=== PATIENT | male | born 1945 | race Hispanic/Latino ===

== ENCOUNTER → 2023-06-30 | Outpatient (CLI) | payer OTHER | END | disposition home or self-care (01) | LOC: RAH 08:37 | PROVIDERS: ATTEND Student in an Organized Health Care Education/Training Program | DX: R07.89 Other chest pain (principal) | CPT/HCPCS: 75574 ==

== ENCOUNTER 2024-06-05 05:53 | Observation (INO) | payer OTHER ==
[~2024-06-05] VITALS: Ht 162.6 cm; Wt 79.0 kg
[~2024-06-05 05:53] MED LIST: AEC81 PO; AMIO200T44 PO; CEPH500B PO; CLOP-31 PO; FURO20TA6 PO; LISI2.5T13 PO; METO25 PO; SIMV-46 PO
--- NOTE | 2024-06-05 06:07 | EKG ---
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
--- NOTE | 2024-06-05 06:19 | ERN ---
ED Note History of Present Illness Stated Complaint: C/O CP Chief Complaint: Chest Pain Time Seen by MD: 06:07 Dictation: This is a 79-year-old male who presents to the emergency room with complaints of chest pain that started around 3:00 a.m.. Patient stated that he was in his usual state when he went to bed but woke up and felt the pain mostly in the precordial area. The son also reports that he was diaphoretic and did not feel well. No nausea vomitings no heartburn or indigestion. No syncopal episode Temperature 97.1 pulse 66 respirations 20 blood pressure 201/103 pulse oximetry 98% on room air His chronic medical problems include hypertension hypercholesterolemia coronary artery disease status post coronary artery bypass surgery on 09/14/2023, transient AFib postoperatively Allergies: Coded Allergies: No Known Drug Allergies (Unverified Allergy, Unknown, 09/09/23) Home Meds Active Scripts Cephalexin Monohydrate (Keflex) 500 Mg Cap, 1 CAP PO TID for 10 Days, #30 CAP 0 Refills Prov:JESSA AUGUSTINE MD 02/06/24 Metoprolol Tartrate (Lopressor) 25 Mg Tab, 25 MG PO BID for 30 Days, #30 TAB Prov:OLIVIER GUIDRY 09/19/23 Furosemide (Lasix 20Mg Tab) 20 Mg Tablet, 20 MG PO Q12H for 15 Days, #15 TAB Prov:OLIVIER GUIDRY 09/19/23 Clopidogrel Bisulfate (Plavix) 75 Mg Tablet, 75 MG PO DAILY for 30 Days, #30 TAB Prov:OLIVIER GUIDRY 09/19/23 Amiodarone HCl (Pacerone) 200 Mg Tablet, 200 MG PO DAILY, #30 30 Prov:OLIVIER GUIDRY 09/19/23 Reported Medications Aspirin (ASPIRIN 81 MG ECTAB) 81 Mg Ectab, 81 MG PO DAILY, TAB.EC 09/09/23 Simvastatin (Simvastatin) 40 Mg Tablet, 40 MG PO DAILY, TAB 09/09/23 Lisinopril (Lisinopril) 2.5 Mg Tablet, 2.5 MG PO DAILY, TAB 09/09/23 Past Medical History Past Medical History: Heart Disease, Hypertension Additional Past Medical Hx: HX OF TRIPLE BYPASS ( 08/2023) Surgical History: Other Surgical History Other: HX OF TRIPLE BYPASS ( 08/2023) Family History: Negative RN Note Reviewed/Agreed w/PFSH: Yes Review of System Dictation Constitutional: Negative for fever,chills, and weight loss Eyes: Negative for injury, pain,redness, and discharge ENT: Negative for injury,pain or swelling Cardiovascular: Positive for chest pain, palpitations, and edema Respiratory: Negative for shortness of breath, cough, and wheezing, Abdomen/GI: Negative for abdominal pain, nausea, vomiting, diarrhea, and constipation Back: Negative for injury and pain : Negative for injury, bleeding and discharge MS/Extremity: Negative for injury and deformity Skin: Negative for rash, and discoloration Neuro: Negative for headache, weakness, numbness, tingling, and seizure Psych: Negative for suicide ideation, homicidal ideation, and hallucinations Initial Vital Sign VS Vital Signs Date Time Temp Pulse Resp B/P (MAP) Pulse Ox O2 Delivery O2 Flow Rate FiO2 06/05/24 05:59 97.2 66 20 201/103 97 Room Air 06/05/24 06:07 0 21 Physical Exam Dictation General: awake, alert, NAD Head/Face: Normocephalic, atraumatic Eyes: PERRL, EOMI, vision at baseline ENT: oral cavity clear, TMs clear, no signs of infection Neck: Trachea midline, supple, no nuchal rigidity Cardiovascular: RRR, normal S1/S2, No MRGs, no JVD Respiratory: CTAB, no respiratory distress, No rales or wheezes Abdomen: Soft, non-tender, non-distended, normal bowel sounds, no guarding or rebound. Skin: Warm, dry, normal turgor, no rash MS/Extremity: Pulses equal, no cyanosis, neurovascular intact, FROM Neuro: COAx4, GCS 15, strength 5/5, CN 2-12 intact, normal cerebellar exam, normal gait, Psych: Normal behavior, mood, and affect normal Extremities-trace edema without any palpable cords, Homans sign is negative Results (Laboratory/Radiology) Laboratory/Radiology Laboratory Tests Test 06/05/24 04:53 06/05/24 06:08 06/05/24 06:45 White Blood Count 9.1 K/uL (4.8-10.8) Red Blood Count 4.33 MIL/uL (4.50-6.20) L Hemoglobin 14.1 g/dL (14.0-18.0) Hematocrit 41.3 % (42-54) L Mean Corpuscular Volume 95.4 fL (79-99) Mean Corpuscular Hemoglobin 32.6 pg (27.0-33.0) Mean Corpuscular Hemoglobin Concent 34.1 g/dL (32.0-36.0) Red Cell Distribution Width 12.7 % (11.0-15.5) Platelet Count 197 K/uL (130-400) Mean Platelet Volume 10.5 fL (7.5-10.5) Immature Granulocyte % (Auto) 0.3 % (0-1) Neutrophils (%) (Auto) 73.4 % (40.0-77.0) Lymphocytes (%) (Auto) 19.3 % (21.0-51.0) L Monocytes (%) (Auto) 5.9 % (3.0-13.0) Eosinophils (%) (Auto) 0.9 % (0.0-8.0) Basophils (%) (Auto) 0.2 % (0.0-5.0) Neutrophils # (Auto) 6.7 K/uL (1.8-7.7) Lymphocytes # (Auto) 1.8 K/uL (1.0-4.8) Monocytes # (Auto) 0.5 K/uL (0.1-1.0) Eosinophils # (Auto) 0.08 K/uL (0.00-0.70) Basophils # (Auto) 0.02 K/uL (0.00-0.20) Absolute Immature Granulocyte (auto 0.03 K/uL (0-1) Nucleated Red Blood Cells 0.0 % (0.0-0.19) B-Type Natriuretic Peptide 82 pg/mL (0-100) Sodium Level 144 mmol/L (136-145) Potassium Level 4.3 mmol/L (3.5-5.1) Chloride Level 107 mmol/L (101-111) Carbon Dioxide Level 27 mmol/L (21-32) Blood Urea Nitrogen 21 mg/dL (7-18) H Creatinine 1.3 mg/dL (0.5-1.3) Glomerular Filtration Rate Calc 56 mL/min (>90) Random Glucose 138 mg/dL (70-105) H Total Calcium 8.8 mg/dL (8.5-10.1) Total Creatine Kinase 230 U/L (21-232) Troponin I < 0.05 ng/mL (0.00-0.05) Labs Reviewed?: Yes EKG Comment: Twelve lead EKG done on 06/05/2024 at 5:55 a.m. showed a heart rate of 70, PA interval 189, QRS 86, QT/QTC 400/431 Impression normal sinus rhythm with nonspecific ST-T changes in the lateral leads. Interpreted by ER MD Dr. Rodrigues Ultrasound Comment: Echocardiogram Conclusion Mild concentric left ventricular hypertrophy. No regional wall motion abnormalities noted. Left ventricle systolic function is normal, 55-60%. Stage I diastolic dysfunction. Trace aortic regurgitation. Trace mitral regurgitation. Trace tricuspid regurgitation. RVSP is 16 mmHg. No pericardial effusion. DICTATED BY: BIBI DEMPSEY MD DATE: 09/13/23 1501 ELECTRONICALLY SIGNED BY: BIBI DEMPSEY MD DATE: 09/13/23 2303 ED Course ED Course Orders Procedure Category Date Status Time Vital Signs Per CPOE 06/05/24 Transmitted Routine 05:55 B-Type Natriuretic LAB 06/05/24 Complete Peptide 05:55 Chest 1vw RAD 06/05/24 Taken 05:55 12 Lead Ekg Tracing- EKG 06/05/24 Complete Technical 05:55 Oxygen By Nc/Pulse Ox CPOE 06/05/24 Transmitted 05:55 Maintain Iv CPOE 06/05/24 Transmitted 05:55 Iv Insertion CPOE 06/05/24 Transmitted 05:55 Cardiac Monitoring CPOE 06/05/24 Transmitted 05:55 Pulse Oximetry With CPOE 06/05/24 Transmitted Vs And Prn 05:55 Cbc With Differential LAB 06/05/24 Complete 05:55 Activity: Br W/Brp CPOE 06/05/24 Transmitted With Assist 05:55 Creatine Kinase, Total LAB 06/05/24 Complete 05:55 Urinalysis Profile LAB 06/05/24 Logged 05:55 Troponin Poc Order LAB 06/05/24 Logged Only 05:55 Bedside Troponin-I LAB.ER 06/05/24 In Process (Poc) 05:55 Basic Metabolic Panel LAB 06/05/24 Complete 05:55 Nitroglycerin 1gm PHA 06/05/24 Complete Oint (Nitroglycerin 1g 06:30 Nitroglycerin 0.4mg PHA 06/05/24 In Process Sl Tab (Nitrostat) 06:30 Aspirin 325mg Tab PHA 06/05/24 Complete (Aspirin 325mg Tab) 06:30 Troponin Poc Order LAB 06/05/24 Logged Only 06:16 Current Medications Medications (Trade) Dose Ordered Sig/[place] Route PRN Reason Start Time Stop Time Status Last Admin Dose Admin Aspirin (Aspirin 325mg Tab) 325 mg ONCE ONCE PO 06/05/24 06:30 06/05/24 06:31 DC 06/05/24 06:24 Nitroglycerin (Nitroglycerin 1gm Oint) 1 inch ONCE ONCE TD 06/05/24 06:30 06/05/24 06:31 DC 06/05/24 06:30 Nitroglycerin (Nitrostat) 0.4 mg Q5M PRN SL CHEST PAIN 06/05/24 06:30 06/05/24 06:24 Vital Signs Date Time Temp Pulse Resp B/P (MAP) Pulse Ox O2 Delivery O2 Flow Rate FiO2 06/05/24 06:07 98.1 16 199/113 99 Room Air* 0 21 06/05/24 05:59 97.2 66 20 201/103 97 Room Air We will perform diagnostic labs, advanced imaging and administer medications according to the patient's complaint. Once the results are available, will review and personally interpreted the labs to rule out any acute life- threatening emergency the trach require immediate intervention and treatment. I will then re-evaluate the patient after treatment and diagnostic exams have return to determine whether the patient requires any further testing, can safely be discharged home or need further admission to hospital for additional treatment and evaluation. Labs reviewed CBC is with a normal limits BNP 7 showed a BUN and creatinine of 21 and 1.3. CK total 238 Troponins and brain natriuretic peptide are pending Chest x-ray preliminary-old sternotomy is clips, chronic increased markings seen. No focal infiltrate or pleural effusions noted At his advanced age multiple risk factors known coronary artery disease with severe hypertensive emergency I recommended admission to the hospital for further management and patient is agreeable HEART Score Response (Comments) Value History: Moderate suspicion (+1) 1 EKG: Repolarization changes 1 Age: > 65yrs (+2) 2 Risk Factors: 1-2 risk factors (+1) 1 Total 5 Medical Decision Making MDM MDM: Differential diagnosis: Hypertensive emergency, unstable angina, musculoskeletal pain, gastroesophageal reflux disease Rationale: Tests considered and ordered secondary to shared decision making include: labs, ECG and radiology Previous outside records reviewed: Old ER visits. Risk of complication and/or morbidity or mortality of patient management: None Medications-Per medication reconciliation Need for hospitalization: Patient does meet criteria for hospitalization. Need for emergency major/minor surgery: No There are no social concerns with this patient. Prescription drug management Prescriptions will include symptomatic care Patient's prior external medical records from other ER visits were reviewed by me as indicated. Prior testing and results from previous visits were reviewed. Prior tests were taken into account with medical decision making and resource utilization, independent historian/historians were used to obtain complete medical history. I independently interpreted the test that were performed, results were reviewed by me and considered findings on radiology if ordered. Medical management and examination interpretation discussions were had by me with other qualified healthcare professionals as indicated for the patient's care. I Took over care at 7:00 a.m. pending repeat blood pressure and lab evaluation CC: Chest pain Historian: Patient Comorbidities: CABG, hypertension Limitations by social determinants: None Differential diagnosis: Hypertensive emergency, ACS, other. Initial vital signs: Blood pressure 201/103 otherwise stable. Repeat blood pressure 161 over 90. Clinical exam is unremarkable Labs (independently interpreted by me): No leukocytosis, no anemia. Chemistry panel shows stable electrolytes and renal function. CK within normal limits. Troponin normal. EKG nonspecific ST and T-wave changes, no STEMI. External chart review, recent echocardiogram shows LVH, EF 55-60% stage I diastolic dysfunction. Dated 09/13/2023. Treatment in ER: Aspirin, nitroglycerin paste and sublingual nitroglycerin. Plan: Patient has a heart score of 6 based on history, EKG, age and risk factors. We will admit for hypertensive emergency and ACS. Consultation: Hospitalist for admission Dr Gabriela Bonner Problem List Problem List: (1) Hypertensive emergency (2) Unstable angina (3) Coronary artery disease DX & DISP Disposition: Inpatient Departure Impression: Primary Impression: Hypertensive emergency Additional Impressions: Unstable angina, Coronary artery disease Critical Time: 30 minutes (Critical Care Procedure NoteAuthorized and Performed by: meTotal critical care time: Approximately 36 minutesDue to a high probability of clinically significant, life threatening deterioration, the patient required my highest level of preparedness to intervene emergently and I personally spent this critical care time directly and personally managing the patient. This critical care time included obtaining a history; examining the patient; pulse oximetry; ordering and review of studies; arranging urgent treatment with development of a management plan; evaluation of patient's response to treatment; frequent reassessment; and, discussions with other provi ders.This critical care time was performed to assess and manage the high probability of imminent, life-threatening deterioration that could result in multi-organ failure. It was exclusive of separately billable procedures and treating other patients and teaching time.Please see MDM section and the rest of the note for further information on patient assessment and treatment.) Condition: Stable Additional Instructions: Patient was informed of all the diagnostic labs and procedures conducted in the emergency room today and demonstrated understanding of the results. I personally reviewed and interpreted all the diagnostic exams performed in the ER today. The patient will be admitted to the hospital for further treatment and evaluation. Disposition-admit to facility Condition-stable/guarded Course-uncertain at this time Pain status-decreased Assessment-exam unchanged Admission Certification- I certify that the patients status is appropriate and is based on my best clinical judgment and the patient's condition as documented in the medical records Referrals: [place] THOMPSON (PCP) JANELL RODRIGUES MD Jun 05, 2024 06:19 SELMA BONNER DO Jun 05, 2024 07:14
[2024-06-05] MEDS: ASPIRIN 325MG TAB PO ONE (06:24)
[2024-06-05] MEDS: NITROGLYCERIN 0.4 MG SL TAB SL PRN (06:24)
[2024-06-05 06:28] LABS: BASOPHILS # (AUTO) 0.02 K/uL (0.00-0.20); BASOPHILS % (AUTO) 0.2 % (0.0-5.0); EOSINOPHILS # (AUTO) 0.08 K/uL (0.00-0.70); EOSINOPHILS % (AUTO) 0.9 % (0.0-8.0); HEMATOCRIT 41.3 % (42-54); IMMATURE GRANULOCYTE ABSOLUTE 0.03 K/uL (0-1); LYMPHOCYTES # (AUTO) 1.8 K/uL (1.0-4.8); LYMPHOCYTES % (AUTO) 19.3 % (21.0-51.0); MEAN CORPUSCULAR HEMOGLOBIN 32.6 pg (27.0-33.0); MEAN CORPUSCULAR HGB CONC 34.1 g/dL (32.0-36.0); MEAN CORPUSCULAR VOLUME 95.4 fL (79-99); MONOCYTES # (AUTO) 0.5 K/uL (0.1-1.0); MONOCYTES % (AUTO) 5.9 % (3.0-13.0); NEUTROPHILS # (AUTO) 6.7 K/uL (1.8-7.7); NEUTROPHILS % (AUTO) 73.4 % (40.0-77.0); PLATELET COUNT (AUTO) 197 K/uL (130-400); RED BLOOD CELL COUNT(AUTO) 4.33 MIL/uL (4.50-6.20); RED CELL DISTRIBUTION WIDTH 12.7 % (11.0-15.5); WHITE BLOOD COUNT (AUTO) 9.1 K/uL (4.8-10.8)
[2024-06-05] MEDS: NITROGLYCERIN 1GM OINT 1 INCH/1GM TD ONE (06:30)
[2024-06-05 06:44] LABS: CREATININE 1.3 mg/dL (0.5-1.3); POTASSIUM 4.3 mmol/L (3.5-5.1)
--- NOTE | 2024-06-05 06:55 | NUR ---
REPORT RECEIVED FROM PIERO RUGGIERO
[2024-06-05 07:05] LABS: B-TYPE NATRIURETIC PEPTIDE 82 pg/mL (0-100)
--- NOTE | 2024-06-05 07:20 | NUR ---
ASSESSMENT: PT CURRENTLY DENIES ANY CP OR SOB.
--- NOTE | 2024-06-05 08:18 | HMCIMG ---
CHEST 1VW HISTORY: Chest pain COMPARISON: 09/19/2023 FINDINGS: A frontal projection of the chest was obtained. Prominent interstitial markings are seen with possible superimposed infiltrates. Poststernotomy changes are seen. The heart is enlarged. Degenerative changes of the thoracolumbar spine are present. No evidence of aortic calcification is seen. IMPRESSION: 1. Prominent interstitial markings are seen with possible superimposed infiltrates.
--- NOTE | 2024-06-05 08:55 | NUR ---
BENCHMARK: ANNIE ARANDA WAS JUST IN TO SEE THE PT
[2024-06-05] MEDS: acetaMINOPHEN 500 MG TABLET PO PRN (10:50)
--- NOTE | 2024-06-05 10:50 | NUR ---
PAIN MANAGEMENT: ORAL ANALGESIC PROVIDED TO PT FOR HIS HEADACHE
--- NOTE | 2024-06-05 13:30 | NUR ---
PT INFORMED THAT HIS NOON TROPONIN WAS NORMAL AND THAT WE WILL CONTINUE TO MONITOR HIM. QUESTIONS ANSWERED ABOUT SOME OF HIS OTHER EXAMS.
[2024-06-05] MEDS ORDERED: LIDOCAINE HCL 2% VISCOUS 30 ML, MAG/ALUM/SIMETH 30ML 30 ML, DICYCLOMINE HCL 20 MG PO PRN (14:00)
[2024-06-05] MEDS ORDERED: LOPERAMIDE HCL 2 MG CAP PO PRN (14:00)
[2024-06-05] MEDS ORDERED: ZOLPidem TARTrate 5 MG TAB PO PRN (14:00)
[2024-06-05] MEDS ORDERED: NITROGLYCERIN 0.4 MG SL TAB SL PRN (14:00)
[2024-06-05] MEDS ORDERED: acetaMINOPHEN 500 MG TABLET PO PRN (14:00)
[2024-06-05] MEDS ORDERED: guaiFENesin-DM 200/20MG 10ML PO PRN (14:00)
[2024-06-05] MEDS ORDERED: ALPRAZolam 0.5 MG TABLET PO PRN (14:00)
[2024-06-05] MEDS ORDERED: MAG/ALUM/SIMETH 30 ML UDCUP PO PRN (14:00)
[2024-06-05] MEDS ORDERED: guaiFENesin SUGAR-FREE 100 MG/5 ML UDCUP PO PRN (14:00)
[2024-06-05] MEDS ORDERED: ketOROlac 15MG/ML VIAL (15MG/ML) IV PRN (14:00)
[2024-06-05] MEDS ORDERED: ondanSETRON 4MG INJ IV PRN (14:00)
[2024-06-05] MEDS ORDERED: ibuPROFEN 400 MG TABLET PO PRN (14:00)
[2024-06-05] MEDS ORDERED: morPHINE 2 MG SYG IVP PRN (14:00)
[2024-06-05] MEDS ORDERED: DiphenhydrAMINE HCL 25 MG CAPSULE PO PRN (14:00)
[2024-06-05] MEDS ORDERED: doCUSate SODIUM 100 MG CAP PO PRN (14:00)
[2024-06-05] MEDS ORDERED: polyETHYLene GLYCol 3350 17 GM POWD.PACK PO PRN (14:00)
[2024-06-05] MEDS ORDERED: ARTIFICAL TEARS SOL 15 ML OP PRN (14:00)
[2024-06-05] MEDS ORDERED: LACTULOSE 20 GM/30 ML UDCUP PO PRN (14:00)
[2024-06-05] MEDS ORDERED: ALBUTEROL 0.083% 2.5 MG/3 ML INH IH PRN (14:00)
[2024-06-05] MEDS ORDERED: acetaMINOPHEN 325 MG TAB PO PRN (14:00)
[2024-06-05] MEDS ORDERED: hydrALAZine 25MG TABLET PO PRN (14:00)
[2024-06-05] MEDS ORDERED: hydrALAZine 20MG/ML VIAL IV PRN (14:30)
--- NOTE | 2024-06-05 14:30 | HP ---
[facility] HISTORY & PHYSICAL Date Patient Seen: Jun 05, 2024 Time of Visit: 14:20 Supervising Physician: Dr Gonzalo Alvarado Primary Care Physician: Dr Marty Ramirez Outpatient Specialists: [Dr Hernandez Inpatient Consults: [ PROBLEM LIST: Hypertensive Emergency Chest Pain Essential hypertension Hyperlipidemia Ex-smoker HPI: Mr. Hernandez Alvarado is a 79-year-old male with a past medical history of triple- vessel disease status post CABG in August of 2023, hypertension, hyperlipidemia presents to the emergency room with a chief complaint of chest pain with an o nset of prior to arrival. Patient reports he woke up about 3:00 a.m. this morning with severe chest pain. Patient reports he was diaphoretic and was feeling very well. Patient reports he went to bed last night in his usual state and was awakened by this pain. Patient denies pain radiating to his left arm or back. Patient denies nausea or vomiting. Patient denies fevers, chills, shortness for breath, syncope, abdominal pain. Admission vital signs are temperature 97.2 C, heart rate 66 beats per minute, respiratory rate 17 breaths per minute, blood pressure 201/103, O2 sat 97 % on room air. Admission labs unremarkable. Troponin 39, repeat a 41. Admission chest x-ray shows interstitial markings with possible superimposed infiltrates. Patient will be admitted for hypertensive emergency and chest pain. PAST MEDICAL HX: see above PAST SURGICAL HX: noncontributory SOCIAL HISTORY: No tobacco, ETOH, or illicit drug use Coded Allergies: No Known Drug Allergies (Unverified Allergy, Unknown, 09/09/23) REVIEW OF SYSTEMS: 12 point ROS reviewed with patient. Pertinent positives mentioned above. Otherwise negative. PHYSICAL EXAM: GENERAL: alert, weak, awake oriented x 3 HEENT: EOMI, Sclera non icteric, moist mucosa NECK: Supple, no JVD, trachea midline LUNGS: Clear breath sounds bilaterally. No wheezes HEART: Regular rate and rhythm. Normal S1 and S2, without murmurs ABD: Abdomen soft, nontender. Bowel sounds present EXT: No clubbing cyanosis or edema NEURO: Alert and oriented to person, follows commands Vital Signs (last 8hr) Date Time Temp Pulse Resp B/P (MAP) Pulse Ox O2 Delivery O2 Flow Rate FiO2 06/05/24 12:30 97.2 66 17 151/82 97 Room Air* 0 21 06/05/24 08:00 98.1 59 16 155/87 98 Room Air* 0 21 LABS: Hematology Labs: Test 06/05/24 04:53 Range/Units White Blood Count 9.1 4.8-10.8 K/uL Red Blood Count 4.33 L 4.50-6.20 MIL/uL Hemoglobin 14.1 14.0-18.0 g/dL Hematocrit 41.3 L 42-54 % Mean Corpuscular Volume 95.4 79-99 fL Mean Corpuscular Hemoglobin 32.6 27.0-33.0 pg Mean Corpuscular Hemoglobin Concent 34.1 32.0-36.0 g/dL Red Cell Distribution Width 12.7 11.0-15.5 % Platelet Count 197 130-400 K/uL Mean Platelet Volume 10.5 7.5-10.5 fL Immature Granulocyte % (Auto) 0.3 0-1 % Neutrophils (%) (Auto) 73.4 40.0-77.0 % Lymphocytes (%) (Auto) 19.3 L 21.0-51.0 % Monocytes (%) (Auto) 5.9 3.0-13.0 % Eosinophils (%) (Auto) 0.9 0.0-8.0 % Basophils (%) (Auto) 0.2 0.0-5.0 % Neutrophils # (Auto) 6.7 1.8-7.7 K/uL Lymphocytes # (Auto) 1.8 1.0-4.8 K/uL Monocytes # (Auto) 0.5 0.1-1.0 K/uL Eosinophils # (Auto) 0.08 0.00-0.70 K/uL Basophils # (Auto) 0.02 0.00-0.20 K/uL Absolute Immature Granulocyte (auto 0.03 0-1 K/uL Nucleated Red Blood Cells 0.0 0.0-0.19 % Chemistry Labs: Test 06/05/24 11:56 06/05/24 06:45 06/05/24 06:08 06/05/24 04:53 Range/Units Troponin I High Sensitivity 41 4-75 ng/L Troponin I < 0.05 0.00-0.05 ng/mL Sodium Level 144 136-145 mmol/L Potassium Level 4.3 3.5-5.1 mmol/L Chloride Level 107 101-111 mmol/L Carbon Dioxide Level 27 21-32 mmol/L Blood Urea Nitrogen 21 H 7-18 mg/dL Creatinine 1.3 0.5-1.3 mg/dL Glomerular Filtration Rate Calc 56 >90 mL/min Random Glucose 138 H 70-105 mg/dL Total Calcium 8.8 8.5-10.1 mg/dL Total Creatine Kinase 230 21-232 U/L B-Type Natriuretic Peptide 82 0-100 pg/mL DIAGNOSTICS / RADIOLOGY RESULTS: PATIENT: HERNANDEZ ALVARADO MR#: [id number] : 1945 SEX: M AGE: 79 LOCATION: [facility] ORDER 6 STATUS: REG REPORT#: [id number] SERVICE REASON: CHEST PAIN ORDERING PHYSICIAN: JANELL MALIK MD PROCEDURE: CXR1VW - CHEST 1VW CHEST 1VW HISTORY: Chest pain COMPARISON: 09/19/2023 FINDINGS: A frontal projection of the chest was obtained. Prominent interstitial markings are seen with possible superimposed infiltrates. Poststernotomy changes are seen. The heart is enlarged. Degenerative changes of the thoracolumbar spine are present. No evidence of aortic calcification is seen. IMPRESSION: 1. Prominent interstitial markings are seen with possible superimposed infiltrates. DICTATED BY: PAULA WRIGHT MD DATE: 06/05/24813 ELECTRONICALLY SIGNED BY: PAULA WRIGHT MD DATE: 06/05/24817 PLAN Supplemental oxygen as needed Telemetry monitoring Trend troponins x3 Twelve lead EKG Resume amiodarone Resume Plavix Resume Lasix Reason metoprolol Resume aspirin Resume lisinopril Resume simvastatin Protonix 40 mg IV b.i.d. Lovenox for DVT prophylaxis Hydralazine as needed Labetalol as needed NEURO: Minimize central acting medications as possible. Maintain fall precautions, adequate lighting during the day PULMONARY: Supplemental 02 as needed. Maintain aspiration precautions at all times CARDIOVASCULAR: Follow hemodynamics. Vital signs per facility protocol GI & NUTRITION: Continue with nutritional support. Continue stool softeners and laxatives as needed. KIDNEYS & ELECTROLYTES: Strict monitoring of intake, output and overall fluid balance. Avoid nephrotoxic medications to the extent possible. Medications to be dosed according to renal function. Monitor electrolytes and replace as needed ENDOCRINE: Maintain blood glucose between 100-180 at all times. Hypoglycemia protocol in place INFECTIOUS DISEASE: Trend temperature, WBC and procalcitonin level Follow cultures, deescalate antibiotics as soon as possible. Panculture if new onset fever ONCOLOGY/HEMATOLOGY/COAGULATION: Monitor for s/s of bleeding Monitor hemoglobin, coagulation studies as needed SKIN: Pressure ulcer prevention per facility protocol Specialty mattress ORTHO/REHAB: Continue PT/OT Prophylaxis: Continue GI and DVT prophylaxis Code Status: Full Resuscitation Disposition: Home in 24 hours Other: Total patient care time exceeds 35 minutes excluding all procedures. ATTESTATION BY PHYSICIAN The patient has been seen and evaluated, the case has been discussed with the RESEARCH TECHNICIAN, I agree with the clinical findings and plan of care. Lawson Alvarado MD, ECTOR N RESEARCH TECHNICIAN Jun 05, 2024 14:30
[2024-06-05] MEDS: furoSEMIDE 20 MG TABLET PO SCH (15:53)
--- NOTE | 2024-06-05 16:40 | NUR ---
VENOUS DOPPLER: TECH JUST ARRIVED TO PERFORM EXAM. PT WAS CHANGED INTO A HOSPITAL GOWN
[2024-06-05] MEDS ORDERED: IOHEXOL-350 75 ML VIAL IV ONE (16:44)
--- NOTE | 2024-06-05 17:25 | NUR ---
CONSENT OBTAINED FOR PE PROTOCOL
--- NOTE | 2024-06-05 17:30 | NUR ---
PT JUST LEFT FOR HIS CT FOR PE PROTOCOL
--- NOTE | 2024-06-05 17:42 | NUR ---
PT JUST RETURNED FROM CT SCAN
--- NOTE | 2024-06-05 17:54 | HMCIMG ---
CT ANGIOGRAM OF THE CHEST WITHOUT AND WITH CONTRAST. CT RECONSTRUCTIONS INDICATION: Elevated d-dimer TECHNIQUE: Routine axial images using 3 mm slice thickness were acquired from the lung apices to the bases before and after the intravenous administration of 100 mL of Omnipaque 350 contrast material using the pulmonary embolism protocol. Maximum Intensity Projection imaging in the sagittal and coronal planes were also provided. CT was performed with one or more of the following dose reduction techniques: Automated exposure control, adjustment of the mA and/or kV according to patient size, or use of iterative reconstruction technique. COMPARISON: None FINDINGS: The contrast bolus is of good quality for diagnosis of pulmonary embolism. The heart size is within normal limits without pericardial effusion. Coronary arterial wall calcific plaque noted. The main pulmonary arteries, segmental branches, and visualized subsegmental pulmonary arteries appear normal without intraluminal filling defects. Pulmonary trunk is not enlarged. No evidence for thoracic aortic aneurysm or dissection. The origins of the great vessels and thoracic aorta appear normal. The visible portions of the trachea and airways are patent. No pleural effusion, pneumothorax, abnormal opacity or consolidation, pulmonary nodule, or mass identified. No axillary, hilar, or mediastinal lymphadenopathy detected. Gallbladder distention and gallbladder wall edema as well as subtle surrounding pericholecystic inflammatory fat stranding. Visible osseous structures are intact. IMPRESSION: Findings suggesting acute cholecystitis without evidence for pulmonary embolism.
--- NOTE | 2024-06-05 18:15 | NUR ---
PT ASSISTED OOB TO BR TO HAVE A STOOL. THIS IS HIS 2ND TODAY
--- NOTE | 2024-06-05 19:13 | NUR ---
REPORT ENDORSED TO JC FORRESTER
--- NOTE | 2024-06-05 20:31 | HMCIMG ---
US VENOUS DOPPLER BILATERAL HISTORY: Leg swelling COMPARISON: None TECHNIQUE: Bilateral lower extremity venous Doppler ultrasound study was performed. FINDINGS: The common femoral, femoral, popliteal, and posterior tibial veins are visualized. Normal flow with augmentation and compressibilities are demonstrated. The greater saphenous veins are also seen and grossly patent. IMPRESSION: 1. No evidence of deep venous thrombosis is seen.
[2024-06-05] MEDS: atorVAStatin 20 MG TABLET PO SCH (21:23)
[2024-06-05] MEDS: FAMOTIDINE 20MG TAB PO SCH (21:23)
[2024-06-05] MEDS: metoPROLOL tartRATE 25 MG TAB PO SCH (21:23)
[2024-06-05 21:31] LABS: APPEARANCE,URINE CLEAR (CLEAR); BILIRUBIN,URINE NEGATIVE (NEGATIVE); COLOR,URINE COLORLESS (YELLOW); GLUCOSE, URINE (UA) NEGATIVE (NEGATIVE); KETONES,URINE NEGATIVE (NEGATIVE); LEUKOCYTE ESTERASE ,URINE NEGATIVE Leu/uL (NEGATIVE); NITRATE,URINE NEGATIVE (NEGATIVE); OCCULT BLOOD,URINE NEGATIVE (NEGATIVE); PROTEIN,URINE NEGATIVE (NEGATIVE); UROBILINOGEN,URINE 0.2 mg/dL (0.2-1.0)
[2024-06-05 21:36] LABS: ADD UA MICROSCOPIC YES
[2024-06-05 21:38] LABS: RBC,URINE 0-1 /HPF (0-1); SQUAMOUS EPITHELIAL CELL,UR RARE /HPF (0-2); WBC,URINE 0-1 /HPF (0-1)
[2024-06-06] VITALS (7 sets, daily range): BP systolic 122–135; BP diastolic 70–83; PULSE 54–66; RESP 18–20; TEMP 97.7–98; O2SAT 96–98
[2024-06-06 05:55] LABS: HEMOGLOBIN A1C 6.1 % (4.0-6.0)
[2024-06-06 06:03] LABS: ALBUMIN 3.2 g/dL (3.5-5.0); BILIRUBIN,DIRECT 0.2 mg/dL (0.0-0.3); BILIRUBIN,TOTAL 0.7 mg/dL (0.2-1.0); CREATININE 0.9 mg/dL (0.5-1.3); MAGNESIUM 2.1 mg/dL (1.80-2.40); PHOSPHORUS 3.4 mg/dL (2.5-4.9); POTASSIUM 4.1 mmol/L (3.5-5.1)
[2024-06-06] MEDS: LISINOPRIL 2.5 MG TABLET PO SCH (09:00)
[2024-06-06] MEDS: ASPIRIN 81 MG EC TAB PO SCH (09:00)
[2024-06-06] MEDS: AMIOdarone 200 MG TABLET PO SCH (09:00)
[2024-06-06] MEDS: cloPIDOgrel 75MG TAB PO SCH (09:00)
--- NOTE | 2024-06-06 10:39 | PN ---
[facility] PROGRESS NOTE Date Patient Seen: Jun 06, 2024 Time of Visit: 10:33 Supervising Physician: [Dr Calles Primary Care Physician: Dr Marty Ramirez Outpatient Specialists: [Dr Hernandez Inpatient Consults: [ PROBLEM LIST: Hypertensive Emergency POA - resolved Chest Pain POA - resolved Acute cholecystitis POA Essential hypertension Hyperlipidemia Ex-smoker Plan Summary: Supplemental oxygen as needed Telemetry monitoring Twelve lead EKG Continue cardioprotective medications Antiemetics as needed Pain medication as needed Obtain abdominal ultrasound General surgery consult INTERVAL HISTORY: Mr. 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 Patient reports he woke up about 3:00 a.m. this morning with severe chest pain. Patient reports he was diaphoretic and was feeling very well. Patient reports he went to bed last night in his usual state and was awakened by this pain. Patient denies pain radiating to his left arm or back. Patient denies nausea or vomiting. Patient denies fevers, chills, shortness for breath, syncope, abdominal pain. Admission vital signs are temperature 97.2 C, heart rate 66 beats per minute, respiratory rate 17 breaths per minute, blood pressure 201/103, O2 sat 97 % on room air. Admission labs unremarkable. Troponin 39, repeat a 41. Admission chest x-ray shows interstitial markings with possible superimposed infiltrates. Patient will be admitted for hypertensive emergency and chest pain. 06/06 - patient is seen and evaluated at the bedside. Patient is accompanied by his son. Patient does not appear to be in any acute distress at this time. Patient denies any recurrent chest pain since prior to admission. Patient does report minimal right upper quadrant pain. Patient has remained NPO. Patient had a CT of the chest completed to rule out PE due to elevated D-dimer and re sults were negative for PE. Patient's CT of the sinuses show findings suggesting acute cholecystitis. Patient's bilateral lower extremity venous Dopplers were negative for DVT. We are currently pending abdominal ultrasound. General surgery has been consulted and pending evaluation and recommendations. Vital signs are stable. Labs are within normal limits. REVIEW OF SYSTEMS: 12 point ROS reviewed with patient. Pertinent positives mentioned above. Otherwise negative. PHYSICAL EXAM: GENERAL: alert, weak, awake oriented x 3 HEENT: EOMI, Sclera non icteric, moist mucosa NECK: Supple, no JVD, trachea midline LUNGS: Clear breath sounds bilaterally. No wheezes HEART: Regular rate and rhythm. Normal S1 and S2, without murmurs ABD: Abdomen soft, nontender. Bowel sounds present EXT: No clubbing cyanosis or edema NEURO: Alert and oriented to person, follows commands Vital Signs (last 8hr) Date Time Temp Pulse Resp B/P (MAP) Pulse Ox O2 Delivery O2 Flow Rate FiO2 06/06/24 08:00 98.1 59 18 133/75 98 Room Air 06/06/24 04:00 98.1 55 18 128/75 98 Room Air LABS: Hematology Labs: Test 06/05/24 04:53 Range/Units White Blood Count 9.1 4.8-10.8 K/uL Red Blood Count 4.33 L 4.50-6.20 MIL/uL Hemoglobin 14.1 14.0-18.0 g/dL Hematocrit 41.3 L 42-54 % Mean Corpuscular Volume 95.4 79-99 fL Mean Corpuscular Hemoglobin 32.6 27.0-33.0 pg Mean Corpuscular Hemoglobin Concent 34.1 32.0-36.0 g/dL Red Cell Distribution Width 12.7 11.0-15.5 % Platelet Count 197 130-400 K/uL Mean Platelet Volume 10.5 7.5-10.5 fL Immature Granulocyte % (Auto) 0.3 0-1 % Neutrophils (%) (Auto) 73.4 40.0-77.0 % Lymphocytes (%) (Auto) 19.3 L 21.0-51.0 % Monocytes (%) (Auto) 5.9 3.0-13.0 % Eosinophils (%) (Auto) 0.9 0.0-8.0 % Basophils (%) (Auto) 0.2 0.0-5.0 % Neutrophils # (Auto) 6.7 1.8-7.7 K/uL Lymphocytes # (Auto) 1.8 1.0-4.8 K/uL Monocytes # (Auto) 0.5 0.1-1.0 K/uL Eosinophils # (Auto) 0.08 0.00-0.70 K/uL Basophils # (Auto) 0.02 0.00-0.20 K/uL Absolute Immature Granulocyte (auto 0.03 0-1 K/uL Nucleated Red Blood Cells 0.0 0.0-0.19 % Chemistry Labs: Test 06/06/24 05:13 06/05/24 06:45 06/05/24 04:53 Range/Units Sodium Level 143 136-145 mmol/L Potassium Level 4.1 3.5-5.1 mmol/L Chloride Level 108 101-111 mmol/L Carbon Dioxide Level 28 21-32 mmol/L Blood Urea Nitrogen 15 7-18 mg/dL Creatinine 0.9 0.5-1.3 mg/dL Glomerular Filtration Rate Calc 87 >90 mL/min Random Glucose 97 70-105 mg/dL Hemoglobin A1c 6.1 H 4.0-6.0 % Estimated Average Glucose (eAG) 128 H 70-126 mg/dL Total Calcium 8.5 8.5-10.1 mg/dL Phosphorus Level 3.4 2.5-4.9 mg/dL Magnesium Level 2.10 1.80-2.40 mg/dL Total Bilirubin 0.7 0.2-1.0 mg/dL Direct Bilirubin 0.2 0.0-0.3 mg/dL Aspartate Amino Transf (AST/SGOT) 16 10-37 U/L Alanine Aminotransferase (ALT/SGPT) 22 12-78 U/L Alkaline Phosphatase 72 50-136 U/L Total Creatine Kinase 99 21-232 U/L Troponin I High Sensitivity 35.6 4-75 ng/L Total Protein 7.0 6.0-8.3 g/dL Albumin 3.2 L 3.5-5.0 g/dL Amylase Level 51 25-115 U/L Procalcitonin < 0.05 L 0.05-0.5 ng/mL Troponin I < 0.05 0.00-0.05 ng/mL B-Type Natriuretic Peptide 82 0-100 pg/mL Coagulation Labs: Test 06/05/24 15:16 Range/Units D-Dimer Quantitative (PE/DVT) 1389 *H 0-500 ng/mL DIAGNOSTICS / RADIOLOGY RESULTS: PATIENT: HERNANDEZ ALVARADO MR#: [id number] : 1945 SEX: M AGE: 79 LOCATION: [facility] ORDER 1633 STATUS: ADM IN REPORT#: [id number] SERVICE 163 REASON: +D D DIMER ORDERING PHYSICIAN: TRINA FRANKS NP PROCEDURE: CHES PE - CT CHEST PE PROTOCOL WWO CONT CT ANGIOGRAM OF THE CHEST WITHOUT AND WITH CONTRAST. CT RECONSTRUCTIONS INDICATION: Elevated d-dimer TECHNIQUE: Routine axial images using 3 mm slice thickness were acquired from the lung apices to the bases before and after the intravenous administration of 100 mL of Omnipaque 350 contrast material using the pulmonary embolism protocol. Maximum Intensity Projection imaging in the sagittal and coronal planes were also provided. CT was performed with one or more of the following dose reduction techniques: Automated exposure control, adjustment of the mA and/or kV according to patient size, or use of iterative reconstruction technique. COMPARISON: None FINDINGS: The contrast bolus is of good quality for diagnosis of pulmonary embolism. The heart size is within normal limits without pericardial effusion. Coronary arterial wall calcific plaque noted. The main pulmonary arteries, segmental branches, and visualized subsegmental pulmonary arteries appear normal without intraluminal filling defects. Pulmonary trunk is not enlarged. No evidence for thoracic aortic aneurysm or dissection. The origins of the great vessels and thoracic aorta appear normal. The visible portions of the trachea and airways are patent. No pleural effusion, pneumothorax, abnormal opacity or consolidation, pulmonary nodule, or mass identified. No axillary, hilar, or mediastinal lymphadenopathy detected. Gallbladder distention and gallbladder wall edema as well as subtle surrounding pericholecystic inflammatory fat stranding. Visible osseous structures are intact. IMPRESSION: Findings suggesting acute cholecystitis without evidence for pulmonary embolism. DICTATED BY: JERRY HAYWOOD MD DATE: 06/05/241744 ELECTRONICALLY SIGNED BY: JERRY HAYWOOD MD DATE: 06/05/241753 PLAN NEURO: Minimize central acting medications as possible. Maintain fall precautions, adequate lighting during the day PULMONARY: Supplemental 02 as needed. Maintain aspiration precautions at all times CARDIOVASCULAR: Follow hemodynamics. Vital signs per facility protocol GI & NUTRITION: Continue with nutritional support. Continue stool softeners and laxatives as needed. KIDNEYS & ELECTROLYTES: Strict monitoring of intake, output and overall fluid balance. Avoid nephrotoxic medications to the extent possible. Medications to be dosed according to renal function. Monitor electrolytes and replace as needed ENDOCRINE: Maintain blood glucose between 100-180 at all times. Hypoglycemia protocol in place INFECTIOUS DISEASE: Trend temperature, WBC and procalcitonin level Follow cultures, deescalate antibiotics as soon as possible. Panculture if new onset fever ONCOLOGY/HEMATOLOGY/COAGULATION: Monitor for s/s of bleeding Monitor hemoglobin, coagulation studies as needed SKIN: Pressure ulcer prevention per facility protocol Specialty mattress ORTHO/REHAB: Continue PT/OT Prophylaxis: Continue GI and DVT prophylaxis Code Status: Full Resuscitation Disposition: Home once medically stable for discharge Other: Total patient care time exceeds 35 minutes excluding all procedures. ATTESTATION BY PHYSICIAN I attest that I reviewed and discussed the case with the Physician Caustic Strength Inspector as well as agree with the Physician Caustic Strength Inspector's findings, plans of care, and documentation above. Akbar Mishra MD,TRINA N BLAST HOLE DRILLER Jun 06, 2024 10:38
--- NOTE | 2024-06-06 11:45 | HMCIMG ---
US ABDOMINAL RUQ\E\LTD HISTORY: Acute cholecystitis COMPARISON: None TECHNIQUE: Right upper quadrant abdominal ultrasound study was performed. FINDINGS: The study is limited due to overlying bowel gas. Liver measures 14 cm. The visualized portion of the pancreas is within normal limits. Liver is echogenic consistent with liver parenchymal disease. No gallstone is seen. Common duct measures 4 mm. No evidence of gallbladder wall thickening is seen. Right kidney measures 10.4 x 4.5 x 4.2 cm. No hydronephrosis is seen of the right kidney. IMPRESSION: 1. No gallstones or ductal dilatation is seen. 2. No hydronephrosis is seen.
--- NOTE | 2024-06-06 14:42 | DS ---
[facility] DISCHARGE SUMMARY Date Patient Seen: Jun 06, 2024 Time of Visit: 14:39 Supervising Physician: [DR Calles Primary Care Physician: Dr Marty Ramirez Outpatient Specialists: [Dr Hernandez Inpatient Consults: [ PROBLEM LIST: Hypertensive Emergency POA - resolved Chest Pain POA - resolved Acute cholecystitis? - ruled out Essential hypertension Hyperlipidemia Ex-smoker HOSPITAL COURSE: HPI (per admitting provider) Mr. 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 Patient reports he woke up about 3:00 a.m. this morning with severe chest pain. Patient reports he was diaphoretic and was feeling very well. Patient reports he went to bed last night in his usual state and was awakened by this pain. Patient denies pain radiating to his left arm or back. Patient denies nausea or vomiting. Patient denies fevers, chills, shortness for breath, syncope, abdominal pain. Admission vital signs are temperature 97.2 C, heart rate 66 beats per minute, respiratory rate 17 breaths per minute, blood pressure 201/103, O2 sat 97 % on room air. Admission labs unremarkable. Troponin 39, repeat a 41. Admission chest x-ray shows interstitial markings with possible superimposed infiltrates. Patient will be admitted for hypertensive emergency and chest pain. 06/06 - patient is seen and evaluated at the bedside. Patient is accompanied by his son. Patient does not appear to be in any acute distress at this time. Patient denies any recurrent chest pain since prior to admission. Patient does report minimal right upper quadrant pain. Patient has remained NPO. Patient had a CT of the chest completed to rule out PE due to elevated D-dimer and results were negative for PE. Patient's CT of the sinuses show findings grier ggesting acute cholecystitis. Patient's bilateral lower extremity venous Dopplers were negative for DVT. We are currently pending abdominal ultrasound. General surgery has been consulted and pending evaluation and recommendations. Vital signs are stable. Labs are within normal limits. Pt had abdominal US performed and results were unremarkable. Pt tolerating oral diet with no nausea, vomiting, or abd pain. PT has been advised to follow up with PCP in 1-2 days. Vital signs stable Labs WNL. MEd rec has been completed. Education regarding current diagnosis has been provided to the patient. Pt has been advised on making good dietary choices. All questions have been answered. Pt to be discharged home. The patient was treated for the following problems: ACTIVE PROBLEM LIST FOR THE HOSPITALIZATION: Hypertensive Emergency POA - resolved Chest Pain POA - resolved Acute cholecystitis? - ruled out Essential hypertension Hyperlipidemia Ex-smoker CHRONIC PROBLEMS: continue previous management per PCP unless otherwise indicated W[employer]URB[employer] MECHANIC FINDINGS/RECOMMENDATIONS: [ ] PROCEDURES: as mentioned above DISCHARGE MEDICATIONS: See DC med rec Pt hemodynamically stable and afebrile at time of discharge. PCP notified of patients admission, hospital course and discharge. Continued Medications: Amiodarone HCl (Pacerone) 200 Mg Tablet 200 MG PO DAILY, #30 30 Aspirin (Aspirin 81 Mg Ectab) 81 Mg Ectab 81 MG PO DAILY, TAB.EC Clopidogrel Bisulfate (Plavix) 75 Mg Tablet 75 MG PO DAILY for 30 Days, #30 TAB Furosemide (Lasix 20Mg Tab) 20 Mg Tablet 20 MG PO Q12H for 15 Days, #15 TAB Lisinopril (Lisinopril) 2.5 Mg Tablet 2.5 MG PO DAILY, TAB Metoprolol Tartrate (Lopressor) 25 Mg Tab 25 MG PO BID for 30 Days, #30 TAB Simvastatin (Simvastatin) 40 Mg Tablet 40 MG PO DAILY, TAB PHYSICAL EXAM: GENERAL: alert, weak, awake oriented x 3 HEENT: EOMI, Sclera non icteric, moist mucosa NECK: Supple, no JVD, trachea midline LUNGS: Clear breath sounds bilaterally. No wheezes HEART: Regular rate and rhythm. Normal S1 and S2, without murmurs ABD: Abdomen soft, nontender. Bowel sounds present EXT: No clubbing cyanosis or edema NEURO: Alert and oriented to person, follows commands FOLLOW-UP: Follow-up with PCP in 2-3 days RECOMMENDATIONS: See Discharge Instructions This case was seen and discussed with my supervising physician. More than 30 minutes spent on discharge process, including evaluation of the patient, discussion with nursing staff, medication reconciliation and follow-up appointments ATTESTATION BY PHYSICIAN I attest that I reviewed and discussed the case with the Physician Government Operations Consultant as well as agree with the Physician Government Operations Consultant's findings, plans of care, and documentation above. Akbar Mishra MD,TRINA Arevalo WAITER/WAITRESS [place] Jun 06, 2024 14:42
--- NOTE | 2024-06-06 16:20 | NUR ---
DCP Pt awake, alert, oriented x3 maori speaking lives alone. Independent. Pt does not require any medical equipment for ADLs. Anticipates discharge is for home. Addendum: 06/06/24 at 1622 by HEATHER QUINONES RN CM Amended: Links added.
--- NOTE | 2024-06-06 18:10 | NUR ---
PT FAMILY DID NOT WANT PT TO BE DISCHARGE. PT FAMILY SPOKE TO G[employer]EN [employer] MINISTRIES DIRECTOR TO ANSWER QUESTIONS AND EXPLAIN RESULTS OF EXAM. PT FAMILY REQUESTING PT TO HAVE HIDA SCAN. PT FAMILY ALSO SPOKE TO DR STARKS. PER DR STARKS OK TO SCHEDULE FOR HIDA SCAN.
[2024-06-07] VITALS: BP 130/76; PULSE 51; RESP 20; TEMP 98
[2024-06-07 04:00] VITALS: BP_SYST 74; PULSE 65; RESP 20; TEMP 98.1
[2024-06-07 05:03] LABS: HEMATOCRIT 38.6 % (42-54); MEAN CORPUSCULAR HEMOGLOBIN 32.5 pg (27.0-33.0); MEAN CORPUSCULAR HGB CONC 34.2 g/dL (32.0-36.0); MEAN CORPUSCULAR VOLUME 95.1 fL (79-99); RED BLOOD CELL COUNT(AUTO) 4.06 MIL/uL (4.50-6.20); RED CELL DISTRIBUTION WIDTH 12.7 % (11.0-15.5); WHITE BLOOD COUNT (AUTO) 6.6 K/uL (4.8-10.8)
[2024-06-07 05:19] LABS: CREATININE 1.1 mg/dL (0.5-1.3)
[2024-06-07 08:00] VITALS: BP 111/67; PULSE 59; RESP 18; TEMP 97.6; O2SAT 98
--- NOTE | 2024-06-07 10:26 | PN ---
[facility] PROGRESS NOTE Date Patient Seen: Jun 07, 2024 Time of Visit: 10:22 Supervising Physician: [Dr Calles Primary Care Physician: Dr Marty Ramirez Outpatient Specialists: [Dr Hernandez Inpatient Consults: [ PROBLEM LIST: Hypertensive Emergency POA - resolved Chest Pain POA - resolved Acute cholecystitis? - ruled out Essential hypertension Hyperlipidemia Ex-smoker Plan summary: Supplemental oxygen as needed Pending HIDA scan If negative may DC home INTERVAL HISTORY: Mr. 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 Patient reports he woke up about 3:00 a.m. this morning with severe chest pain. Patient reports he was diaphoretic and was feeling very well. Patient reports he went to bed last night in his usual state and was awakened by this pain. Patient denies pain radiating to his left arm or back. Patient denies nausea or vomiting. Patient denies fevers, chills, shortness for breath, syncope, abdominal pain. Admission vital signs are temperature 97.2 C, heart rate 66 beats per minute, respiratory rate 17 breaths per minute, blood pressure 201/103, O2 sat 97 % on room air. Admission labs unremarkable. Troponin 39, repeat a 41. Admission chest x-ray shows interstitial markings with possible superimposed infiltrates. Patient will be admitted for hypertensive emergency and chest pain. 06/06 - patient is seen and evaluated at the bedside. Patient is accompanied by his son. Patient does not appear to be in any acute distress at this time. Patient denies any recurrent chest pain since prior to admission. Patient does report minimal right upper quadrant pain. Patient has remained NPO. Patient had a CT of the chest completed to rule out PE due to elevated D-dimer and resu lts were negative for PE. Patient's CT of the sinuses show findings suggesting acute cholecystitis. Patient's bilateral lower extremity venous Dopplers were negative for DVT. We are currently pending abdominal ultrasound. General surgery has been consulted and pending evaluation and recommendations. Vital signs are stable. Labs are within normal limits. 06/07 - patient is seen sitting up in bed with no signs of acute distress. Patient denies nausea, vomiting, or abdominal pain. Negative Pereyra's sign. Patient had an abdominal ultrasound performed yesterday which was unremarkable. Patient was discharged home yesterday however family was adamant they wanted a HIDA scan performed prior to discharge. Nursing notified Dr. Cabral regarding family's request and gave the okay to schedule with a HIDA scan for this morning. We will await for results. If negative patient may be discharged home. REVIEW OF SYSTEMS: 12 point ROS reviewed with patient. Pertinent positives mentioned above. Otherwise negative. PHYSICAL EXAM: GENERAL: alert, weak, awake oriented x 3 HEENT: EOMI, Sclera non icteric, moist mucosa NECK: Supple, no JVD, trachea midline LUNGS: Clear breath sounds bilaterally. No wheezes HEART: Regular rate and rhythm. Normal S1 and S2, without murmurs ABD: Abdomen soft, nontender. Bowel sounds present EXT: No clubbing cyanosis or edema NEURO: Alert and oriented to person, follows commands Vital Signs (last 8hr) Date Time Temp Pulse Resp B/P (MAP) Pulse Ox O2 Delivery O2 Flow Rate FiO2 06/07/24 08:00 97.5 59 18 111/67 98 Room Air 06/07/24 04:00 98.1 65 20 74/ 96 Room Air LABS: Hematology Labs: Test 06/07/24 04:48 Range/Units White Blood Count 6.6 4.8-10.8 K/uL Red Blood Count 4.06 L 4.50-6.20 MIL/uL Hemoglobin 13.2 L 14.0-18.0 g/dL Hematocrit 38.6 L 42-54 % Mean Corpuscular Volume 95.1 79-99 fL Mean Corpuscular Hemoglobin 32.5 27.0-33.0 pg Mean Corpuscular Hemoglobin Concent 34.2 32.0-36.0 g/dL Red Cell Distribution Width 12.7 11.0-15.5 % Platelet Count 201 130-400 K/uL Mean Platelet Volume 10.1 7.5-10.5 fL Nucleated Red Blood Cells 0.0 0.0-0.19 % Chemistry Labs: Test 06/07/24 04:48 06/06/24 05:13 Range/Units Sodium Level 138 136-145 mmol/L Potassium Level 4.0 3.5-5.1 mmol/L Chloride Level 104 101-111 mmol/L Carbon Dioxide Level 28 21-32 mmol/L Blood Urea Nitrogen 16 7-18 mg/dL Creatinine 1.1 0.5-1.3 mg/dL Glomerular Filtration Rate Calc 68 >90 mL/min Random Glucose 92 70-105 mg/dL Total Calcium 8.7 8.5-10.1 mg/dL Procalcitonin < 0.05 L 0.05-0.5 ng/mL Hemoglobin A1c 6.1 H 4.0-6.0 % Estimated Average Glucose (eAG) 128 H 70-126 mg/dL Phosphorus Level 3.4 2.5-4.9 mg/dL Magnesium Level 2.10 1.80-2.40 mg/dL Total Bilirubin 0.7 0.2-1.0 mg/dL Direct Bilirubin 0.2 0.0-0.3 mg/dL Aspartate Amino Transf (AST/SGOT) 16 10-37 U/L Alanine Aminotransferase (ALT/SGPT) 22 12-78 U/L Alkaline Phosphatase 72 50-136 U/L Total Creatine Kinase 99 21-232 U/L Troponin I High Sensitivity 35.6 4-75 ng/L Total Protein 7.0 6.0-8.3 g/dL Albumin 3.2 L 3.5-5.0 g/dL Amylase Level 51 25-115 U/L Coagulation Labs: Test 06/05/24 15:16 Range/Units D-Dimer Quantitative (PE/DVT) 1389 *H 0-500 ng/mL DIAGNOSTICS / RADIOLOGY RESULTS: IMAGING REPORT Signed PATIENT: HERNANDEZ ALVARADO MR#: [id number] : 1945 SEX: M AGE: 79 LOCATION: [facility] ORDER 0800 STATUS: ADM IN REPORT#: [id number] SERVICE [id number] REASON: acute cecy ORDERING PHYSICIAN: TRINA FRANKS NP PROCEDURE: [id number] - US ABDOMINAL RUQ\LTD US ABDOMINAL RUQ\E\LTD HISTORY: Acute cholecystitis COMPARISON: None TECHNIQUE: Right upper quadrant abdominal ultrasound study was performed. FINDINGS: The study is limited due to overlying bowel gas. Liver measures 14 cm. The visualized portion of the pancreas is within normal limits. Liver is echogenic consistent with liver parenchymal disease. No gallstone is seen. Common duct measures 4 mm. No evidence of gallbladder wall thickening is seen. Right kidney measures 10.4 x 4.5 x 4.2 cm. No hydronephrosis is seen of the right kidney. IMPRESSION: 1. No gallstones or ductal dilatation is seen. 2. No hydronephrosis is seen. DICTATED BY: PAULA WRIGHT MD DATE: 06/06/24 1142 ELECTRONICALLY SIGNED BY: PAULA WRIGHT MD DATE: 06/06/24 1145 PLAN NEURO: Minimize central acting medications as possible. Maintain fall precautions, adequate lighting during the day PULMONARY: Supplemental 02 as needed. Maintain aspiration precautions at all times CARDIOVASCULAR: Follow hemodynamics. Vital signs per facility protocol GI & NUTRITION: Continue with nutritional support. Continue stool softeners and laxatives as needed. KIDNEYS & ELECTROLYTES: Strict monitoring of intake, output and overall fluid balance. Avoid nephrotoxic medications to the extent possible. Medications to be dosed according to renal function. Monitor electrolytes and replace as needed ENDOCRINE: Maintain blood glucose between 100-180 at all times. Hypoglycemia protocol in place INFECTIOUS DISEASE: Trend temperature, WBC and procalcitonin level Follow cultures, deescalate antibiotics as soon as possible. Panculture if new onset fever ONCOLOGY/HEMATOLOGY/COAGULATION: Monitor for s/s of bleeding Monitor hemoglobin, coagulation studies as needed SKIN: Pressure ulcer prevention per facility protocol Specialty mattress ORTHO/REHAB: Continue PT/OT Prophylaxis: Continue GI and DVT prophylaxis Code Status: Full Resuscitation Disposition: Home once medically stable for discharge Other: Total patient care time exceeds 35 minutes excluding all procedures. ATTESTATION BY PHYSICIAN I attest that I reviewed and discussed the case with the Physician Carrot Tier as w ell as agree with the Physician Carrot Tier's findings, plans of care, and documentation above. Akbar Mishra MD,TRINA N IT INFRASTRUCTURE MANAGER Jun 07, 2024 10:26
[2024-06-07 12:00] VITALS: BP 123/78; PULSE 57; RESP 18; TEMP 97.8
[2024-06-07 17:00] VITALS: BP 118/73; PULSE 58; RESP 20; TEMP 97.6
--- NOTE | 2024-06-07 18:00 | HMCIMG ---
HEPATOBILIARY SCAN INDICATION: Right upper abdominal pain COMPARISON: None RADIOPHARMACEUTICAL: Tc99m Choletec DOSE: 7.0 mCi given IV. TECHNIQUE: Abdominal functional images were obtained and submitted for interpretation. FINDINGS: Functional images obtained up to 60 minutes showed hepato-intestinal transit time and accumulation of activity within the gallbladder within normal limits. IMPRESSION: Negative hepatobiliary scan for acute cholecystitis or extrahepatic biliary obstruction.
--- NOTE | 2024-06-07 18:40 | NUR ---
DISCHARGE PT PIV DC'D PT AND FAMILY VERBALIZED UNDERSTANDING OF DISCHARGE INSTRUCTION PT AND FAMILY GATHERED AND TOOK ALL BELONGINGS PT AND FAMILY HAD NO FURTHER QUESTIONS AT TIME OF DISCHARGE
== END 2024-06-07 19:15 | disposition home or self-care (01) ==
LOC: EDH 05:53 → EDHIP 13:39 → 3CH 06-06 01:31
PROVIDERS: ADMIT Internal Medicine; ATTEND Internal Medicine
DX: I11.9 Hypertensive heart disease without heart failure (principal); E78.5 Hyperlipidemia, unspecified; I25.110 Atherosclerotic heart disease of native coronary artery with unstable angina pectoris; R60.0 Localized edema; I16.1 Hypertensive emergency; Z79.02 Long term (current) use of antithrombotics/antiplatelets; Z87.891 Personal history of nicotine dependence; Z95.1 Presence of aortocoronary bypass graft; Z79.899 Other long term (current) drug therapy
CPT/HCPCS: 99285; 82550 ×3; 84484 ×6; 80048 ×3; 83880; 85025; 85378; 81001; 36415 ×3; 71045; 71270; 93970; 93005; 83036; 82150; 80076; 83735; 84100; 76705; 97161; 97116; 84145 ×2; 85027; 78227; G0378 ×54; Q9967; A9537